=== PATIENT | female | born 1970 | race Two or more races ===

== ENCOUNTER 2020-01-21 15:59 | Inpatient (IN) | payer OTHER ==
[~2020-01-21] VITALS: Ht 152.4 cm; Wt 91.6 kg
[2020-01-21] MEDS ORDERED: ONDANSETRON HCL 4 MG/2 ML VIAL IV ONE (16:30)
[2020-01-21] MEDS ORDERED: ASPirin 81 mg TAB PO ONE (16:30)
[2020-01-21] MEDS ORDERED: MORPHINE SULFATE 4 MG/ML SYR/VIAL IV ONE (16:30)
[2020-01-21 17:28] LABS: Albumin 3.3 g/dL (3.4-5.0); Anion Gap 3 (5-15); Blood Urea Nitrogen 10 mg/dL (7-18); Calcium 8.3 mg/dL (8.5-10.1); Carbon Dioxide 26 mmol/L (21-32); Chloride 107 mmol/L (98-107); Glucose 135 mg/dL (74-106); Magnesium 2.4 mg/dL (1.6-2.6); Potassium 3.8 mmol/L (3.5-5.1); Sodium 136 mmol/L (136-145)
[2020-01-21 17:29] LABS: Eosinophils # (auto) 0.2 10 ^3/uL (0-0.8); Monocytes # (auto) 0.5 10 ^3/uL (0-1.3); Nucleated Red Blood Cells % 0.1 %; Red Cell Distribution Width 16.5 % (11.8-14.3); White Blood Cell 8.3 10^3/uL (4.4-10.8)
[2020-01-21 17:32] LABS: Basophils # (auto) 0 10 ^3/uL (0-0.2); Basophils % (auto) 0.5 % (0.0-2.0); Eosinophils % (auto) 2.7 % (0.0-7.0); Hematocrit 31.2 % (36.0-46.0); Hemoglobin 9.6 g/dL (12.2-16.2); Lymphocytes # (auto) 1.9 10 ^3/uL (0.4-5.4); Lymphocytes % (auto) 23.1 % (10.0-50.0); Mean Corpuscular Hemoglobin 21.4 pg (28.0-32.0); Mean Corpuscular Hgb Conc. 30.7 g/dL (32.0-36.0); Mean Corpuscular Volume 69.7 fL (80.0-100.0); Monocytes % (auto) 5.8 % (0.0-12.0); Neutrophils # (auto) 5.6 10 ^3/uL (1.6-8.6); Neutrophils % (auto) 67.9 % (37.0-80.0); Platelet Count (auto) 403 10^3/uL (140-450); Red Blood Cells 4.48 10^6/uL (4.0-5.20)
[2020-01-21 17:33] LABS: Alanine Aminotransferase 28 U/L (13-56); Alkaline Phosphatase 101 U/L (45-117); Aspartate Aminotransferase 22 U/L (15-37); BUN/Creatinine Ratio 18.2; Bilirubin, Total 0.4 mg/dL (0.2-1.0); GFR African American 150 mL/min; GFR Non-African American 124 mL/min; Total Protein 7.7 g/dL (6.4-8.2)
[2020-01-21] MEDS ORDERED: cloNIDine HCL 0.1 MG TAB PO PRN (21:30)
[2020-01-21] MEDS ORDERED: MORPHINE SULF INJ 2 MG/ML SYRINGE 1ML IV PRN (21:30)
[2020-01-21] MEDS ORDERED: NITROGLYCERIN 0.4 MG SL TAB SL PRN (21:30)
[2020-01-21] MEDS ORDERED: ONDANSETRON HCL 4 MG/2 ML VIAL IV PRN (21:30)
[2020-01-21] MEDS ORDERED: TEMAZEPAM 15 MG CAP PO PRN (21:30)
[2020-01-21] MEDS ORDERED: ATORVASTATIN 20 MG TAB PO SCH (22:00)
[2020-01-21 22:44] LABS: % Iron Saturation 4.6 % (15-50)
[2020-01-21] MEDS: FAMOTIDINE 20 MG TAB PO SCH (23:00)
[2020-01-21 23:15] VITALS: BP 142/87
[2020-01-21 23:33] VITALS: BP 142/87
--- NOTE | 2020-01-21 23:39 | NUR ---
Telemetry admit from ER ESTRELLA BRADY admitted to Telemetry unit after SBAR received. Patient oriented to Lilliam Fofana, primary RN, unit, room, bed, and unit policies regarding patient care and visiting hours. Patient now on continuous telemetry monitoring, tele box # [[id number]] and telemetry reading on arrival to unit is [[id number]]. Patient weighed by bedscale and encouraged to call if they need something. All questions and concerns addressed, patient verbalized understanding. Note: []
--- NOTE | 2020-01-22 02:13 | NUR ---
PATIENT SLEEPING. NO S/S OF DISTRESS NOTED. CONTINUE TO MONITOR.
[2020-01-22 05:00] VITALS: BP 114/68
[2020-01-22 05:35] LABS: Basophils # (auto) 0.1 10 ^3/uL (0-0.2); Basophils % (auto) 0.7 % (0.0-2.0); Lymphocytes # (auto) 1.7 10 ^3/uL (0.4-5.4); Mean Corpuscular Volume 68.9 fL (80.0-100.0); Monocytes # (auto) 0.5 10 ^3/uL (0-1.3); Monocytes % (auto) 6.3 % (0.0-12.0); Neutrophils % (auto) 70.5 % (37.0-80.0)
[2020-01-22 05:37] LABS: Eosinophils # (auto) 0.1 10 ^3/uL (0-0.8); Eosinophils % (auto) 1.7 % (0.0-7.0); Hematocrit 28.1 % (36.0-46.0); Hemoglobin 9.1 g/dL (12.2-16.2); Lymphocytes % (auto) 20.8 % (10.0-50.0); Mean Corpuscular Hemoglobin 22.2 pg (28.0-32.0); Mean Corpuscular Hgb Conc. 32.3 g/dL (32.0-36.0); Neutrophils # (auto) 5.6 10 ^3/uL (1.6-8.6); Platelet Count (auto) 342 10^3/uL (140-450); Red Blood Cells 4.08 10^6/uL (4.0-5.20); Red Cell Distribution Width 16.1 % (11.8-14.3)
[2020-01-22 05:50] LABS: Urine Bacteria NONE SEEN /hpf (None Seen); Urine Blood 3+ /uL (Negative); Urine Mucus FEW (None Seen); Urine Specific Gravity 1.022 (1.001-1.035); Urine WBC 6 /hpf (0 - 5)
[2020-01-22 06:04] LABS: Anion Gap 1 (5-15); BUN/Creatinine Ratio 21.6; Blood Urea Nitrogen 11 mg/dL (7-18); Calcium 8.1 mg/dL (8.5-10.1); Carbon Dioxide 29 mmol/L (21-32); Chloride 108 mmol/L (98-107); GFR African American 164 mL/min; GFR Non-African American 136 mL/min; Glucose 115 mg/dL (74-106); Potassium 3.9 mmol/L (3.5-5.1); Sodium 138 mmol/L (136-145)
--- NOTE | 2020-01-22 06:15 | NUR ---
URINE SAMPLE COLLECTED AND SENT. PATIENT IS ON PERIOD. CONTINUE TO MONITOR.
[2020-01-22] MEDS: ASPirin 81 mg TAB PO SCH (09:59)
[2020-01-22] MEDS: FAMOTIDINE 20 MG TAB PO SCH ×2 (10:00→21:27)
[2020-01-22] MEDS: amLODIPine BESYLATE 5 MG TAB PO SCH (10:00)
[2020-01-22] MEDS: ACETAMINOPHEN 325 MG TAB PO PRN ×2 (10:10→17:42)
[2020-01-22 11:50] LABS: Cholesterol 133 mg/dL (< 200); HDL Cholesterol 30 mg/dL (40-59); LDL Cholesterol 80 mg/dL (< 100); Triglycerides 290 mg/dL (< 150)
--- NOTE | 2020-01-22 15:30 | NUR ---
Spoke to Susan MORAN regarding consultation, she stated will come see patient.
--- NOTE | 2020-01-22 19:10 | NUR ---
Opening Shift Note Assumed care of patient, awake and alert. No S/S of distress/SOB. Review charts and medication for tonight. Instructed on POC and to call for assist PRN, will continue to monitor for changes Q1hr and PRN.
--- NOTE | 2020-01-22 20:00 | NUR ---
Patient for Stress test in AM. NPO after midnight was instructed.Patient Verbalized understanding.
[2020-01-22] MEDS: ATORVASTATIN 20 MG TAB PO SCH (21:28)
[2020-01-22 22:00] VITALS: BP 120/75
--- NOTE | 2020-01-22 22:30 | NUR ---
IV insertion IV access obtained for Stress test in AM, via clean sterile technique by inserting 20 gauge catheter at after 1 attempt. IV secured properly. No trauma to site. Patient tolerated procedure well.
--- NOTE | 2020-01-23 01:10 | NUR ---
Dr. Dolan gave pain medication order.
[2020-01-23] MEDS ORDERED: HYDROcodone-ACET 5/325MG TAB PO ONE (01:15)
[2020-01-23 05:00] VITALS: BP 128/75
[2020-01-23] MEDS ORDERED: ADENOSINE 78 MG in GIVE UN-DILUTED 0 ML IV STA (07:59)
--- NOTE | 2020-01-23 08:24 | NUR ---
Opening Shift Note Assumed care of patient, awake and alert. No S/S of distress/SOB or pain. Instructed on POC and to call for assist PRN, will continue to monitor for changes Q1hr and PRN.
[2020-01-23 09:00] VITALS: BP 126/70
[2020-01-23] MEDS: ASPirin 81 mg TAB PO SCH (09:50)
[2020-01-23] MEDS: FAMOTIDINE 20 MG TAB PO SCH ×2 (09:50→21:51)
[2020-01-23] MEDS: amLODIPine BESYLATE 5 MG TAB PO SCH (09:51)
[2020-01-23 13:00] VITALS: BP 155/88
[2020-01-23 17:00] VITALS: BP 120/66
[2020-01-23] MEDS: ATORVASTATIN 20 MG TAB PO SCH (21:51)
[2020-01-23 22:00] VITALS: BP 123/81
[2020-01-24 05:00] VITALS: BP 120/68
--- NOTE | 2020-01-24 07:02 | NUR ---
Closing shift report Report given to AM nurse. Patient no complains, no SOB and acute distress.
[2020-01-24 09:00] VITALS: BP 133/76
[2020-01-24] MEDS: ASPirin 81 mg TAB PO SCH (10:27)
[2020-01-24] MEDS: amLODIPine BESYLATE 5 MG TAB PO SCH (10:28)
[2020-01-24] MEDS: FAMOTIDINE 20 MG TAB PO SCH (10:28)
[2020-01-24 13:07] VITALS: BP 133/76
--- NOTE | 2020-01-24 16:45 | NUR ---
DC instructions given to patient, patient IVs DCD with catheters intact. patient tele monitor removed and returned to [facility].
--- NOTE | 2020-01-24 16:58 | NUR ---
Patient left building with [employer] assist in wheelchair. Patient took all belongings.
== END 2020-01-24 17:52 | disposition home or self-care (01) | DRG 313 ==
LOC: ER 15:59 → TELE 16:00 → TELE-WESTW 23:14
PROVIDERS: ADMIT Nurse Practitioner; ATTEND Family Medicine
DX: R07.89 Other chest pain (principal); I20.0 Unstable angina; D64.9 Anemia, unspecified; E66.01 Morbid (severe) obesity due to excess calories; E78.5 Hyperlipidemia, unspecified; E78.1 Pure hyperglyceridemia; I10 Essential (primary) hypertension; Z68.39 Body mass index [BMI] 39.0-39.9, adult; Z82.49 Family history of ischemic heart disease and other diseases of the circulatory system; Z83.3 Family history of diabetes mellitus; J45.909 Unspecified asthma, uncomplicated
CPT/HCPCS: 36415; 71046; 78452; 80048; 80053; 80061; 81001; 83540; 83550; 83735; 84443; 84484; 85025; 93005; 93017; 93306; G0378; J0153; J2405

== ENCOUNTER 2021-10-22 16:42 | Emergency (ER) | payer OTHER ==
[~2021-10-22] VITALS: Ht 152.4 cm; Wt 73.9 kg
[2021-10-22] MEDS ORDERED: SODIUM CHLORIDE 0.9% 1,000 ML IVB ONE (17:15)
[2021-10-22] MEDS ORDERED: ONDANSETRON HCL 4 MG/2 ML VIAL IV ONE (17:15)
[2021-10-22 22:49] LABS: Basophils # (auto) 0 10 ^3/uL (0-0.2); Basophils % (auto) 0.7 % (0.0-2.0); Eosinophils # (auto) 0.2 10 ^3/uL (0-0.8); Eosinophils % (auto) 4.6 % (0.0-7.0); Hematocrit 44.7 % (36.0-46.0); Hemoglobin 15.3 g/dL (12.2-16.2); Lymphocytes # (auto) 1.6 10 ^3/uL (0.4-5.4); Lymphocytes % (auto) 32.1 % (10.0-50.0); Mean Corpuscular Hemoglobin 32.5 pg (28.0-32.0); Mean Corpuscular Hgb Conc. 34.2 g/dL (32.0-36.0); Mean Corpuscular Volume 95.2 fL (80.0-100.0); Monocytes # (auto) 0.6 10 ^3/uL (0-1.3); Monocytes % (auto) 12.6 % (0.0-12.0); Neutrophils # (auto) 2.5 10 ^3/uL (1.6-8.6); Nucleated Red Blood Cells % 0.1 %; Red Blood Cells 4.69 10^6/uL (4.0-5.20); Red Cell Distribution Width 16.2 % (11.8-14.3); White Blood Cell 5.1 10^3/uL (4.4-10.8)
[2021-10-22 23:14] LABS: Albumin 3.2 g/dL (3.4-5.0); BUN/Creatinine Ratio 23.6; Calcium 9.2 mg/dL (8.5-10.1); Potassium 3.3 mmol/L (3.5-5.1)
[2021-10-22 23:16] LABS: Bilirubin, Total 0.4 mg/dL (0.2-1.0); Total Protein 7.5 g/dL (6.4-8.2)
[2021-10-23] MEDS ORDERED: IOHEXOL 350 MG/ML 100ML IJ ONE (01:38)
[2021-10-23 01:49] LABS: Urine Bacteria NONE SEEN /hpf (None Seen); Urine Blood Negative /uL (Negative); Urine Mucus FEW (None Seen); Urine Specific Gravity 1.045 (1.001-1.035); Urine WBC 26 /hpf (0 - 5)
[2021-10-23] MEDS ORDERED: CIPR500T4 PO (05:24)
[2021-10-23 07:00] VITALS: BP 132/68
== END 2021-10-23 07:22 | disposition home or self-care (01) ==
LOC: ER 16:42
DX: R53.1 Weakness (principal); N39.0 Urinary tract infection, site not specified; R19.7 Diarrhea, unspecified; E11.9 Type 2 diabetes mellitus without complications; I10 Essential (primary) hypertension; Z90.49 Acquired absence of other specified parts of digestive tract; Z98.51 Tubal ligation status
CPT/HCPCS: 36415; 71275; 74176; 80053; 81001; 83605; 83690; 84484; 85025; 85379; 87040; 96360; 96361; 99285; J7030; Q9967

== ENCOUNTER 2021-12-24 18:18 | Emergency (ER) | payer OTHER ==
[~2021-12-24] VITALS: Ht 152.4 cm; Wt 70.0 kg
[~2021-12-24 18:18] MED LIST: CIPR500T4 PO
[2021-12-24 19:24] LABS: Hematocrit 41.4 % (36.0-46.0); Hemoglobin 13.7 g/dL (12.2-16.2); Mean Corpuscular Hemoglobin 31.9 pg (28.0-32.0); Mean Corpuscular Hgb Conc. 33.1 g/dL (32.0-36.0); Mean Corpuscular Volume 96.4 fL (80.0-100.0); Red Cell Distribution Width 14.1 % (11.8-14.3); White Blood Cell 4.5 10^3/uL (4.4-10.8)
[2021-12-24 19:42] LABS: Albumin 3.1 g/dL (3.4-5.0); Calcium 9.6 mg/dL (8.5-10.1); Potassium 3.7 mmol/L (3.5-5.1)
[2021-12-24 19:55] LABS: BUN/Creatinine Ratio 11.3; Bilirubin, Total 0.2 mg/dL (0.2-1.0); Total Protein 8.4 g/dL (6.4-8.2)
[2021-12-24 20:06] LABS: Band Neutrophils % (manual) 0; Basophils % (manual) 0 (0.0-2.0); Metamyelocytes % 0; Myelocytes % 0; Promyelocytes % 0; Reactive Lymphocytes 0
[2021-12-24 20:07] LABS: Blast Cells 0
[2021-12-24 20:10] LABS: Urine Bacteria FEW /hpf (None Seen); Urine Blood Negative /uL (Negative); Urine Hyaline Cast FEW /lpf (0 - 2); Urine WBC 13 /hpf (0 - 5)
[2021-12-24 20:53] LABS: Lymphocytes % (manual) 26 (10.0-50.0)
[2021-12-24 20:54] LABS: Eosinophils % (manual) 24 (0-7); Monocytes % (manual) 9 (0-12)
[2021-12-24 21:36] LABS: Lactic Acid w/Reflex 2.2 mmol/L (0.4-2.0)
[2021-12-24] MEDS ORDERED: HYDROmorphone HCL 2 MG/ML VL/or syr IV ONE (23:45)
[2021-12-24] MEDS ORDERED: ONDANSETRON HCL 4 MG/2 ML VIAL IV ONE (23:45)
[2021-12-25] MEDS ORDERED: cefTRIAXone 1GM/50ML D5W 50 ML IV ONE (00:15)
[2021-12-25] MEDS ORDERED: PERCOT PO (00:18)
[2021-12-25] MEDS ORDERED: ONDA-144 PO (00:18)
[2021-12-25] MEDS ORDERED: FAMO20TA10 PO (00:18)
[2021-12-25] MEDS ORDERED: NITR-87 PO (00:18)
[2021-12-25 01:53] VITALS: BP 102/62
== END 2021-12-25 02:08 | disposition home or self-care (01) ==
LOC: ER 18:18
DX: N39.0 Urinary tract infection, site not specified (principal); I10 Essential (primary) hypertension; E11.9 Type 2 diabetes mellitus without complications; Z98.51 Tubal ligation status; Z90.49 Acquired absence of other specified parts of digestive tract
CPT/HCPCS: 36415; 74176; 76705; 80053; 81001; 83605; 83690; 84484; 85007; 85027; 96365; 96375; 99285; J0696; J1170; J2405

== ENCOUNTER 2022-02-11 15:40 | Emergency (ER) | payer OTHER ==
[~2022-02-11] VITALS: Ht 144.8 cm; Wt 79.9 kg
[~2022-02-11 15:40] MED LIST changes: +FAMO20TA10 PO; +NITR-87 PO; +ONDA-144 PO; +PERCOT PO
[2022-02-11 16:09] LABS: Basophils # (auto) 0.1 10 ^3/uL (0-0.2); Basophils % (auto) 0.9 % (0.0-2.0); Eosinophils # (auto) 0.4 10 ^3/uL (0-0.8); Eosinophils % (auto) 6.5 % (0.0-7.0); Hematocrit 42.3 % (36.0-46.0); Hemoglobin 13.8 g/dL (12.2-16.2); Lymphocytes % (auto) 17.8 % (10.0-50.0); Mean Corpuscular Hemoglobin 29.3 pg (28.0-32.0); Mean Corpuscular Hgb Conc. 32.6 g/dL (32.0-36.0); Mean Corpuscular Volume 89.8 fL (80.0-100.0); Monocytes # (auto) 0.4 10 ^3/uL (0-1.3); Monocytes % (auto) 6.3 % (0.0-12.0); Neutrophils # (auto) 3.9 10 ^3/uL (1.6-8.6); Neutrophils % (auto) 68.5 % (37.0-80.0); Red Cell Distribution Width 13.6 % (11.8-14.3); White Blood Cell 5.7 10^3/uL (4.4-10.8)
[2022-02-11 16:26] LABS: INR 0.97 (0.9-1.15); Partial Thromboplastin Time 29.3 sec (24.6-33.4)
[2022-02-11 16:28] LABS: Albumin 3.5 g/dL (3.4-5.0); BUN/Creatinine Ratio 19.6; Calcium 8.9 mg/dL (8.5-10.1); Magnesium 1.9 mg/dL (1.6-2.6); Potassium 3.8 mmol/L (3.5-5.1)
[2022-02-11 16:31] LABS: Bilirubin, Total 0.4 mg/dL (0.2-1.0); Total Protein 8.5 g/dL (6.4-8.2)
[2022-02-11 17:50] VITALS: BP 156/80
== END 2022-02-11 17:50 | disposition home or self-care (01) ==
LOC: ER 15:40
DX: R07.89 Other chest pain (principal); E11.9 Type 2 diabetes mellitus without complications; I10 Essential (primary) hypertension; Z90.49 Acquired absence of other specified parts of digestive tract; Z98.51 Tubal ligation status
CPT/HCPCS: 36415; 71046; 80053; 83735; 84484; 85025; 85610; 85730; 93005